=== PATIENT | female | born 1995 | race African-American/Black ===

== ENCOUNTER 2016-05-07 16:59 | Emergency (ER) | payer MEDICAID, OTHER ==
[~2016-05-07] VITALS: Ht 172.7 cm; Wt 84.0 kg
[~2016-05-07 16:59] MED LIST: IBUP800T23 PO; ROBA500T PO
[2016-05-07 17:01] VITALS: BP 117/66; PULSE 70; RESP 16; TEMP 97.9; O2SAT 99
--- NOTE | 2016-05-07 17:44 | PD ---
HPI Chief Complaint: Edema Time Seen by Provider: 17:34 Travel History International Travel<30 days: No Contact w/Intl Traveler<30days: No Traveled to known affect area: No History of Present Illness HPI 20-year-old Afro-[place]ong[place] female coming in with 1-2 week history of lower extremity edema and discomfort. Patient states she works 12 hour shifts where she is pending on her feet all day. Patient went to an urgent care today, and they said that she should be seen in the emergency department. Patient denies any fever, chills, shortness of breath, or signs of infection. Patient is not sexually active. Patient's last menstrual cycle was last week. Patient has no urinary symptoms. Patient states the swelling is worse by the end of the day after working all day, and gets better with elevation and at night. Patient has no known drug allergies. PFSH Past Medical History Medical History: Denies Significant Hx Immunizations Current: Yes ?: Not LMP: 04/30/2016 Past Surgical History Other Surgery: Yes (nasal) Social History Alcohol Use: No Tobacco Use: No Substance Use: No Allergies-Medications (Allergen,Severity, Reaction): Coded Allergies: No Known Allergies (Unverified , 05/07/16) Reported Meds & Prescriptions Reported Meds & Active Scripts Active No Active Prescriptions or Reported Medications Review of Systems Except as stated in HPI: all other systems reviewed are Neg General / Constitutional: No: Fever Eyes: No: Visual changes HENT: No: Headaches Cardiovascular: No: Chest Pain or Discomfort Respiratory: No: Shortness of Breath Gastrointestinal: No: Abdominal Pain Genitourinary: No: Dysuria Musculoskeletal: Positive: Edema, No: Pain Skin: No Rash Neurologic: No: Weakness Psychiatric: No: Depression Endocrine: No: Polydipsia Hematologic/Lymphatic: No: Easy Bruising Physical Exam Narrative GENERAL: Patient is in no acute distress. SKIN: Warm and dry. Color. Normal turgor. HEAD: Atraumatic. Normocephalic. EYES: Pupils equal and round. No scleral icterus. No injection or drainage. ENT: No nasal bleeding or discharge. Mucous membranes pink and moist. Pharynx is normal. NECK: Trachea midline. No JVD. CARDIOVASCULAR: Regular rate and rhythm. RESPIRATORY: No accessory muscle use. Clear to auscultation. Breath sounds equal bilaterally. GASTROINTESTINAL: Abdomen soft, non-tender, nondistended. Hepatic and splenic margins not palpable. MUSCULOSKELETAL: Extremities without clubbing, cyanosis, or less than 1+ bilateral lower extremity edema. No obvious deformities. Negative Homans sign bilaterally. No increased pain with compression of the calves or thighs. NEUROLOGICAL: Awake and alert. No obvious cranial nerve deficits. Motor grossly within normal limits. Five out of 5 muscle strength in the arms and legs. Normal speech. PSYCHIATRIC: Appropriate mood and affect; insight and judgment normal. Data Data Last Documented VS Vital Signs Date Time Temp Pulse Resp B/P Pulse Ox O2 Delivery O2 Flow Rate FiO2 05/07/16 17:01 97.9 70 16 117/66 99 Room Air MDM Medical Decision Making Medical Screen Exam Complete: Yes Emergency Medical Condition: No Differential Diagnosis Lower extremity edema. Water retention. Vascular insufficiency. Narrative Course A medical screening exam was performed: At the time of evaluation the presenting medical condition was determined not to be of an emergent nature. The patient was given the option of receiving additional care, but declined. Patient was given options for additional community resources from which to obtain care. The Patient Has Been advised to seek medical attention for their presenting complaint. The patient has been advised to return to the ER at any time if an emergent condition develops. Scripts No Active Prescriptions or Reported Meds Condition: Stable Deacon Lambert May 07, 2016 17:44
== END 2016-05-07 18:09 | disposition left against medical advice (07) ==
LOC: NEPC 16:59
DX: R60.0 Localized edema (principal)
CPT/HCPCS: 99281

== ENCOUNTER 2017-07-13 18:24 | Emergency (ER) | payer OTHER ==
[~2017-07-13] VITALS: Ht 167.6 cm; Wt 90.0 kg
[2017-07-13 19:15] VITALS: BP 137/64; PULSE 73; RESP 18; TEMP 99; O2SAT 100
--- NOTE | 2017-07-13 21:19 | PD ---
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 Patient says this has been going on for past 3 months on and off. However for past 2 weeks it has become more consistent. She is also started having occasional right adnexal pain. Patient is not sexually active for many months. She noticed that she's been having some foul-smelling discharge. No history of fever or chills. Patient is not . She does not have a EDUCATIONAL ASSISTANT TEACHER. Vital signs were stable. [facility] Past Medical History Narrative Medical List of her past medical, surgical, social and family history is reviewed from the nursing note. Medical History: Denies Significant Hx Immunizations Current: Yes Tetanus Vaccination: < 5 Years Influenza Vaccination: No ?: Not LMP: 07/02/17 Past Surgical History Other Surgery: Yes (nasal) Social History Alcohol Use: Yes (socially) Tobacco Use: No Substance Use: Yes (Marijauna rarely) Allergies-Medications (Allergen,Severity, Reaction): Coded Allergies: No Known Allergies (Unverified Allergy, Unknown, 07/13/17) Comments No known drug allergies Reported Meds & Prescriptions Reported Meds & Active Scripts Active Norgestimate-Ethinyl Estradiol 0.18/0.215/0.25 Mg-25 Mcg Tab 1 Tab PO DAILY Flagyl (Metronidazole) 250 Mg Tab 250 Mg PO TID 7 Days Narrative Medication List of her home meds reviewed from the nursing notes. Review of Systems Except as stated in HPI: all other systems reviewed are Neg Genitourinary: Positive: Vaginal Bleeding Physical Exam Narrative GENERAL: Awake, alert, no obvious distress SKIN: Focused skin assessment warm/dry. HEAD: Atraumatic. Normocephalic. EYES: Pupils equal and round. No scleral icterus. No injection or drainage. ENT: No nasal bleeding or discharge. Mucous membranes pink and moist. NECK: Trachea midline. No JVD. CARDIOVASCULAR: Regular rate and rhythm. No murmur appreciated. RESPIRATORY: No accessory muscle use. Clear to auscultation. Breath sounds equal bilaterally. GASTROINTESTINAL: Abdomen soft, non-tender, nondistended. Hepatic and splenic margins not palpable. : External inspection was within normal limit. Speculum exam showed scant discharge which appeared to be normal. No adnexal tenderness or CMT MUSCULOSKELETAL: No obvious deformities. No clubbing. No cyanosis. No edema. NEUROLOGICAL: Awake and alert. No obvious cranial nerve deficits. Motor grossly within normal limits. Normal speech. PSYCHIATRIC: Appropriate mood and affect; insight and judgment normal. Data Data Last Documented VS Vital Signs Date Time Temp Pulse Resp B/P (MAP) Pulse Ox O2 Delivery O2 Flow Rate FiO2 07/13/17 19:15 99.0 73 18 137/64 (88) 100 Orders Orders Beta Hcg (Quant/Titer) (07/13/17 21:45) Complete Blood Count With Diff (07/13/17 21:45) Basic Metabolic Panel (Bmp) (07/13/17 21:45) Gc And Chlamydia Pcr (07/13/17 21:45) Wet Prep Profile (07/13/17 21:45) Urinalysis - C+S If Indicated (07/13/17 21:45) Metronidazole (Flagyl) (07/13/17 23:30) Ed Discharge Order (07/13/17 23:29) Labs Laboratory Tests Test 07/13/17 22:25 07/13/17 22:45 White Blood Count 5.2 TH/MM3 Red Blood Count 4.58 MIL/MM3 Hemoglobin 12.0 GM/DL Hematocrit 36.7 % Mean Corpuscular Volume 80.3 FL Mean Corpuscular Hemoglobin 26.2 PG Mean Corpuscular Hemoglobin Concent 32.6 % Red Cell Distribution Width 14.9 % Platelet Count 281 TH/MM3 Mean Platelet Volume 10.8 FL Neutrophils (%) (Auto) 46.1 % Lymphocytes (%) (Auto) 43.7 % Monocytes (%) (Auto) 7.2 % Eosinophils (%) (Auto) 2.3 % Basophils (%) (Auto) 0.7 % Neutrophils # (Auto) 2.4 TH/MM3 Lymphocytes # (Auto) 2.3 TH/MM3 Monocytes # (Auto) 0.4 TH/MM3 Eosinophils # (Auto) 0.1 TH/MM3 Basophils # (Auto) 0.0 TH/MM3 CBC Comment DIFF FINAL Differential Comment Blood Urea Nitrogen 9 MG/DL Creatinine 0.71 MG/DL Random Glucose 98 MG/DL Calcium Level 8.6 MG/DL Sodium Level 141 MEQ/L Potassium Level 4.1 MEQ/L Chloride Level 106 MEQ/L Carbon Dioxide Level 27.1 MEQ/L Anion Gap 8 MEQ/L Estimat Glomerular Filtration Rate 127 ML/MIN Human Chorionic Gonadotropin, Quant LESS THAN 1 MIU/ML Urine Color LIGHT-YELLOW Urine Turbidity CLEAR Urine pH 6.5 Urine Specific [place] 1.006 Urine Protein NEG mg/dL Urine Glucose (UA) NEG mg/dL Urine Ketones NEG mg/dL Urine Occult Blood NEG Urine Nitrite NEG Urine Bilirubin NEG Urine Urobilinogen LESS THAN 2.0 MG/DL Urine Leukocyte Esterase NEG Urine RBC LESS THAN 1 /hpf Urine WBC LESS THAN 1 /hpf Urine Squamous Epithelial Cells <1 /hpf Microscopic Urinalysis Comment CULT NOT INDICATED Clue Cells (Wet Prep) PRESENT Vaginal Trichomonas (Wet Prep) NONE SEEN Vaginal Yeast (Wet Prep) NONE SEEN Chlamydia trachomatis DNA (PCR) NOT DETECTED Neisseria gonorrhoeae DNA (PCR) NOT DETECTED MDM Medical Decision Making Medical Screen Exam Complete: Yes Emergency Medical Condition: Yes Medical Record Reviewed: Yes Differential Diagnosis Vaginitis, cervicitis, UTI, anemia, DUB Narrative Course 11:46 PM blood test results of back and within normal limit. Wet prep is positive for clue cells. Patient was given a dose of Flagyl and prescription to go home with. She is not a smoker and given that I'm comfortable sending her home on control pills for her DUB. I've encouraged her to follow up with a EDUCATIONAL ASSISTANT TEACHER specialist. Procedures EKG Prior to Arrival: No Diagnosis Primary Impression: DUB (dysfunctional uterine bleeding) Additional Impression: Bacterial vaginosis Referrals: Primary Care Physician Additional Instructions: Take the medication as per the prescription direction. Do not drink alcohol or smoke cigarettes while on the medication. You should find a EDUCATIONAL ASSISTANT TEACHER for yourselves to get follow-up on these issues. Return to the ER if condition worsens or any other new concerns. Med/Other Pt SpecificInfo: Prescription(s) given Scripts Norgestimate-Ethinyl Estradiol (Norgestimate-Ethinyl Estradiol) 0.18/0.215/0.25 Mg-25 Mcg Tab 1 TAB PO DAILY for Control, #1 PACK 0 Refills Prov: Christiano Zuñiga MD 07/13/17 Metronidazole (Flagyl) 250 Mg Tab 250 MG PO TID for Infection for 7 Days, TAB 0 Refills Prov: Christiano Zuñiga MD 07/13/17 Disposition: 01 DISCHARGE HOME Condition: Stable Christiano Zuñiga MD Jul 13, 2017 21:19
[2017-07-13 22:40] LABS: AUTOMATED NEUTROPHIL # 2.4 TH/MM3 (1.8-7.7); BASOPHIL % 0.7 % (0.0-2.0); EOSINOPHIL # 0.1 TH/MM3 (0-0.4); EOSINOPHIL % 2.3 % (0.0-4.0); HEMATOCRIT 36.7 % (35.0-46.0); LYMPH % 43.7 % (9.0-44.0); LYMPHOCYTE # 2.3 TH/MM3 (1.0-4.8); MEAN CELL VOLUME 80.3 FL (80.0-100.0); MEAN CORPUSCULAR HEMOGLOBIN 26.2 PG (27.0-34.0); MEAN CORPUSCULAR HGB CONC 32.6 % (32.0-36.0); MEAN PLATELET VOLUME 10.8 FL (7.0-11.0); MONO % 7.2 % (0.0-8.0); MONOCYTE # 0.4 TH/MM3 (0-0.9); NEUT % 46.1 % (16.0-70.0); PLATELET COUNT 281 TH/MM3 (150-450); RED BLOOD COUNT 4.58 MIL/MM3 (4.00-5.30); RED CELL DISTRIBUTION WIDTH 14.9 % (11.6-17.2); WHITE BLOOD COUNT 5.2 TH/MM3 (4.0-11.0)
[2017-07-13 23:02] LABS: BICARBONATE 27.1 MEQ/L (21.0-32.0); BLOOD UREA NITROGEN 9 MG/DL (7-18); CALCIUM 8.6 MG/DL (8.5-10.1); CHLORIDE 106 MEQ/L (98-107); CREATININE 0.71 MG/DL (0.50-1.00); GLOMERULAR FILTRATION RATE 127 ML/MIN (>89); GLUCOSE,RANDOM 98 MG/DL (74-106); SODIUM (NA) 141 MEQ/L (136-145)
[2017-07-13 23:11] LABS: BILIRUBIN, URINE NEG (NEG); BLOOD, URINE NEG (NEG); GLUCOSE,URINE NEG (NEG); KETONE, URINE NEG (NEG); NITRITE,URINE NEG (NEG); PH, URINE 6.5 (5.0-8.5); SQUAMOUS EPITHELIAL CELL URINE <1 /hpf (0-5); URINE COLOR LIGHT-YELLOW (YELLW/STRAW); URINE LEUKOCYTE ESTERASE NEG (NEG)
[2017-07-13] MEDS ORDERED: metroNIDAZOLE 250 MG TAB PO ONE (23:30)
[2017-07-13] MEDS ORDERED: NORG1TAB3 PO (23:33)
[2017-07-13] MEDS ORDERED: METR250 PO (23:33)
== END 2017-07-14 00:06 | disposition home or self-care (01) ==
LOC: NEPD 18:24
DX: N93.8 Other specified abnormal uterine and vaginal bleeding (principal); N76.0 Acute vaginitis; B96.89 Other specified bacterial agents as the cause of diseases classified elsewhere; Z79.899 Other long term (current) drug therapy; Z32.02 Encounter for pregnancy test, result negative
CPT/HCPCS: 80048; 81001; 84702; 85025; 87210; 87491; 87591; 99283

== ENCOUNTER 2017-07-23 13:11 | Emergency (ER) | payer SELFPAY ==
[~2017-07-23] VITALS: Ht 167.6 cm; Wt 90.5 kg
[~2017-07-23 13:11] MED LIST changes: -IBUP800T23 PO; +METR250 PO; +NORG1TAB3 PO; -ROBA500T PO
[2017-07-23 13:34] VITALS: BP 114/74; PULSE 104; RESP 18; TEMP 99.4; O2SAT 100
--- NOTE | 2017-07-23 16:02 | PD ---
HPI Chief Complaint: Cold / Flu Symptoms Time Seen by Provider: 15:28 Travel History International Travel<30 days: No Contact w/Intl Traveler<30days: No Traveled to known affect area: No History of Present Illness HPI The patient was seen and examined in the presence of the nurse. This patient complains of cough and congestion and runny nose. Duration 3 days. Severity is moderate. No fever. She is not short of breath. No alleviating factors PFSH Past Medical History Medical History: Denies Significant Hx Immunizations Current: Yes ?: Not LMP: 07/04/17 Past Surgical History Other Surgery: Yes (nasal) Social History Alcohol Use: Yes (socially) Tobacco Use: No Substance Use: Yes (Marijauna rarely) Allergies-Medications (Allergen,Severity, Reaction): Coded Allergies: No Known Allergies (Unverified Allergy, Unknown, 07/23/17) Reported Meds & Prescriptions Reported Meds & Active Scripts Active Norgestimate-Ethinyl Estradiol 0.18/0.215/0.25 Mg-25 Mcg Tab 1 Tab PO DAILY Flagyl (Metronidazole) 250 Mg Tab 250 Mg PO TID 7 Days Review of Systems General / Constitutional: No: Fever HENT: No: Headaches Respiratory: Positive: Cough Gastrointestinal: No: Vomiting Genitourinary: No: Hematuria Physical Exam Narrative GENERAL: Well-nourished, well-developed patient in no apparent distress. SKIN: Focused skin assessment reveals no rash and nodules. Skin is Warm and dry. HEAD: Atraumatic. Normocephalic. EYES: Pupils equal and round. No scleral icterus. No injection or drainage. ENT: No nasal bleeding or discharge. Mucous membranes pink and moist. NECK: Trachea midline. No JVD. CARDIOVASCULAR: Regular rate and rhythm. No murmur appreciated. RESPIRATORY: No accessory muscle use. Clear to auscultation. Breath sounds equal bilaterally. GASTROINTESTINAL: Abdomen soft, non-tender, nondistended. Hepatic and splenic margins not palpable. MUSCULOSKELETAL: No obvious deformities. No clubbing. No cyanosis. No edema. NEUROLOGICAL: Awake and alert. No obvious cranial nerve deficits. Motor grossly within normal limits. Normal speech. PSYCHIATRIC: Appropriate mood and affect; insight and judgment normal. Data Data Last Documented VS Vital Signs Date Time Temp Pulse Resp B/P (MAP) Pulse Ox O2 Delivery O2 Flow Rate FiO2 07/23/17 13:34 99.4 104 18 114/74 (38) 100 MDM Medical Decision Making Medical Screen Exam Complete: Yes Emergency Medical Condition: Yes Medical Record Reviewed: Yes Differential Diagnosis Bronchitis, flu syndrome, URI Narrative Course I have reviewed the patient's electronic medical record. Presentation consistent with an acute viral syndrome. No indication for antibiotics or emergent studies. Gradual resolution is expected Diagnosis Primary Impression: Acute viral syndrome Additional Instructions: The patient was advised to follow up with their physician and return if they worsen. Med/Other Pt SpecificInfo: Other Disposition: 01 DISCHARGE HOME Condition: Stable Duglas Perry MD Jul 23, 2017 16:02
== END 2017-07-23 16:29 | disposition home or self-care (01) ==
LOC: NEPD 13:11
DX: B34.9 Viral infection, unspecified (principal)
CPT/HCPCS: 99281